=== PATIENT | female | born 1970 | race Caucasian/White ===

== ENCOUNTER 2016-05-10 04:09 | Emergency (ER) | payer MEDICAID ==
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
[2016-05-10 04:31] VITALS: TEMP 97.9; BMI 26.4
--- NOTE | 2016-05-10 05:11 | DIRPT ---
CLINICAL DATA: 46-year-old female with shortness of breath EXAM: CHEST 2 VIEW COMPARISON: Chest CT and radiograph dated 10/18/2014 FINDINGS: Two views of the chest do not demonstrate a focal consolidation. There is no pleural effusion or pneumothorax but a large hiatal hernia is again noted. The cardiac silhouette is within normal limits. The osseous structures appear unremarkable. IMPRESSION: No acute cardiopulmonary process. Large hiatal hernia. Electronically Signed By: Alan Shaw M.D. On: 05/10/2016 05:08
[2016-05-10] MEDS ORDERED: ALBUTEROL 6.7 GM MDI INH ONE (05:39)
[2016-05-10 05:57] VITALS: BP 100/66; PULSE 99
== END 2016-05-10 05:56 | disposition home or self-care (01) ==
LOC: ED 04:09
DX: J45.901 Unspecified asthma with (acute) exacerbation (principal)
CPT/HCPCS: 71020; 94640; 99284; J3490

== ENCOUNTER 2016-05-16 20:17 | Observation (INO) | payer MEDICAID ==
[2016-05-16 20:18] VITALS: BMI 26.4
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
[2016-05-16 21:05] LABS: ALL NEG? NO
[2016-05-16 21:13] LABS: MDMA* NEG (NEGATIVE); METHAMPHETAMINES *POSITIVE* (NEGATIVE); OXYCODONE NEG (NEGATIVE)
[2016-05-16 21:20] LABS: AUTOMATED BASOPHIL 0.8 % (0-2); AUTOMATED LYMPH 13.9 % (17-44); AUTOMATED MONOCYTE 1.5 % (3-10); AUTOMATED NEUTROPHIL 83.8 % (45-76); MPV 8.2 fL (7.4-10.4)
[2016-05-16 21:29] LABS: BLOOD UREA NITROGEN 15 MG/DL (7-17); CALC CORRECTED 8.7 MG/DL (8.4-10.2); CALCIUM 8.6 MG/DL (8.4-10.2); CALCULATED OSMOLALITY 287 MOs/Kg (270-290); CHLORIDE 109 mEq/L (98-107); GLUCOSE 130 MG/DL (70-99); SODIUM LEVEL 148 mEq/L (137-146); TOTAL PROTEIN 7.7 G/DL (6.3-8.2)
[2016-05-16 21:31] LABS: PARTIAL THROMB. TIME 21.8 SEC (22-35)
[2016-05-16 21:37] LABS: ETOH-MGDL 318 mg/dL
[2016-05-16] MEDS ORDERED: LORAZEPAM 1 MG TAB PO PRN (21:50)
[2016-05-16] MEDS ORDERED: DOCUSATE-SENNA CONCENTRATE TAB PO PRN (21:50)
[2016-05-16] MEDS ORDERED: ACETAMINOPHEN 325 MG/TAB TABLET PO PRN (21:50)
[2016-05-16] MEDS ORDERED: ONDANSETRON HCL 4 MG ODT TAB PO PRN (21:50)
[2016-05-16] MEDS ORDERED: MAGNESIUM HYDROXIDE 30 ML BOTTLE PO PRN (21:50)
[2016-05-16] MEDS ORDERED: Docusate Sodium 100 MG CAP PO PRN (21:50)
[2016-05-16] MEDS ORDERED: IBUPROFEN 400 MG TAB PO PRN (21:50)
[2016-05-16] MEDS ORDERED: ZOLPIDEM TARTRATE 5 MG TAB PO PRN (21:50)
[2016-05-16] MEDS ORDERED: DIAZEPAM 5 MG TAB PO ONE (21:56)
[2016-05-16] MEDS ORDERED: NICOTINE 21 MG PATCH TOP SCH (22:00)
[2016-05-17] MEDS ORDERED: DIAZEPAM 5 MG TAB PO ONE (00:26)
[2016-05-17] MEDS ORDERED: QUETIAPINE FUMARATE 25 MG TAB PO STA (03:26)
[2016-05-17] MEDS ORDERED: RISPERIDONE 1 MG TAB PO ONE (03:26)
[2016-05-17] MEDS ORDERED: LORAZEPAM 2 MG/ML VIAL IV PRN ×3 (03:28)
[2016-05-17] MEDS ORDERED: LORAZEPAM 1 MG TAB PO PRN ×3 (03:28)
[2016-05-17] MEDS ORDERED: DICYCLOMINE 20 MG TAB PO PRN (03:28)
[2016-05-17] MEDS ORDERED: Alcohol Withdrawal Scale Orders XX SCH (04:00)
[2016-05-17] MEDS ORDERED: CHLORDIAZEPOXIDE 25 MG CAP PO ONE (04:00)
[2016-05-17] MEDS ORDERED: CHLORDIAZEPOXIDE 25 MG CAP PO SCH (04:00)
[2016-05-17] MEDS: GABAPENTIN 300 MG CAP PO SCH ×2 (06:16→13:54)
[2016-05-17] MEDS: RANITIDINE 150 MG TAB PO SCH ×2 (09:00→13:55)
--- NOTE | 2016-05-17 11:11 | EDTUNOTE ---
Initial Evaluation Apperance: Stated Age Attitude: Cooperative Mood: Sad Affect: Congruent w/ mood, Depressed Insight: Impaired Judgement: Impaired Memory Description: Intact Depressive Symptoms: Reports: Crying episodes, Poor Energy, Sadness, Sleep changes Delusion Description: Reports: Not Present Hallucination Type: Reports: Visual Hallucinations Severity: Reports: Mild Hallucinations affecting more than one sensory system: No Recommend /or Refer: Involuntary Commitment - SOAP Note Patient Problems: Active Problems Alcohol intoxication (Acute) F10.129 Major depression (Acute) F32.9 PTSD (post-traumatic stress disorder) (Acute) F43.10 SOAP Note: 05/17/16 1100 Day 2 S: 46 y.o F presented to ED for alcohol intoxication, visual hallucinations. Pt denies c/o this morning. O: Vital Signs: Temp:99.5 F HR: 104 BP: 114/67 RR: 18 Pox: 95%. Resting comfortably CTA RRR A: Polysubstance abuse Major depression PTSD P: Continue meds as directed for further stabilization.
[2016-05-17] MEDS: CHLORDIAZEPOXIDE 25 MG CAP PO SCH ×2 (11:15→17:41)
--- NOTE | 2016-05-17 14:27 | TUDEPART ---
Disposition: Trans. to Other Hospital ([facility] [place]) Education/Counseling Given To: Patient Education/Counseling Given Regarding: Diagnosis, Treatment Decision to Transfer Time: 14:27 <Joya Loyola - Last Filed: 05/17/16 14:27> Time Seen By Provider: 18:36 Discussion of OBS Stay: No changes in clinical status or new information from previous documentation. Vital Signs: Temp:97.9 F HR: 116 BP: 126/78 RR: 20 Pox: 98%. Continue with current plan. General: PleasanT female] No acute distress. Neuro: Alert Oriented, calm and cooperative HEENT: Normocephalic atraumatic. Sclerae nonicteric. Extraocular movements intact. Oral mucosa pink and moist. Neck: Supple. Nontender. Good range of motion. No masses. Trachea is midline. No cervical adenopathy. Lungs: Clear to auscultation. No rhonchi or wheezing. Heart: Regular rate and rhythm. No murmur. Abdomen: Soft, nontender, nondistended. No hepatosplenomegaly. No abdominal wall defects or masses. No guarding or rebound. Extremities: no cyanosis clubbing or edema. No palpable deformities. Skin: Warm and dry, no rashes Yes I personally saw and evaluated the patient. <Rogerio Valle - Last Filed: 05/17/16 18:36> Condition: Stable Follow-up / Referrals: None,No Provider [Family Provider] - One Week - Physical Exam Constitutional: Alert (Awake), ETOH, Other (TEARFUL WHEN ASKED ABOUT SI AND FRIENDS ) Oriented to: Time, Person, Place Last recorded Vital Signs: Last Vital Signs Temp 98.1 F 05/17/16 11:10 Pulse 103 05/17/16 11:10 Resp 16 05/17/16 11:10 BP 97/62 L 05/17/16 11:10 Pulse Ox 95 05/17/16 11:10 Oxygen Pulse Oxygen Saturation 95 O2 Device Room Air Oxygen Flow Rate Fraction of Inspired Oxygen ( FIO2) - HEENT Head: Normal ( normocephalic) Eye Exam: Normal (PERRL, EOMI, Sclera white) Oropharynx: Normal (Pharynx:Moist without exudate,Gums-no swelling) Tympanic Membrane: Normal ENT EAC: Normal TMJ: Normal Nose: No Symptoms Reported (septum midline) - Respiratory/Cardiovascular Respiratory: Normal - CTA (BBS clear to auscultation without adventitious sounds ) Cardiovascular: Normal (RRR without murmur, gallop or rub) - GI Auscultation: Normal (NABS) Palpation: Normal (Soft,No rebound or guarding, non distended) Tenderness: Non tender Santana's Sign: Negative - Musculoskeletal Back: Normal (Non-Tender) Extremities: Normal (Normal tone, Pulses 2+ No cyanosis or edema, FROM) - Integumentary Skin: Normal, Warm, Dry Lymphatics: Normal (no adenopathy) - Neurologic Memory Impaired: Normal Motor Function: Normal (Normal tone, Pulses 2+ No cyanosis or edema, FROM) Cranial Nerve: Normal (CN II-X11 intact sensation, strength 5/5) Cerebellar: Normal Mood Description: Normal Perception: Normal <Joya Loyola - Last Filed: 05/17/16 14:27> - Physical Exam Last recorded Vital Signs: Last Vital Signs Temp 97.9 F 05/17/16 18:00 Pulse 116 05/17/16 18:00 Resp 20 05/17/16 18:00 BP 126/78 05/17/16 18:00 Pulse Ox 98 05/17/16 18:00 Oxygen Pulse Oxygen Saturation 98 O2 Device Room Air Oxygen Flow Rate Fraction of Inspired Oxygen ( FIO2) <Rogerio Valle - Last Filed: 05/17/16 18:36>
[2016-05-17] MEDS ORDERED: ALBUTEROL 6.7 GM MDI INH ONE (17:56)
[2016-05-17 18:47] VITALS: BP 139/86; PULSE 112; TEMP 98.3
[2016-05-17] MEDS ORDERED: ATORVASTATIN 40 MG TAB PO SCH (21:00)
[2016-05-18] MEDS ORDERED: CHLORDIAZEPOXIDE 25 MG CAP PO SCH (06:00)
[2016-05-18] MEDS ORDERED: VITAMINS,PRENATAL TABLET PO SCH (12:00)
[2016-05-18] MEDS ORDERED: THIAMINE 100 MG TAB PO SCH (12:00)
== END 2016-05-17 18:34 ==
LOC: ED 20:17 → EDINP 21:50 → TUOBSINP 05-17 07:42
PROVIDERS: ADMIT Physician Assistant Medical; ATTEND Physician Assistant Medical
DX: F43.10 Post-traumatic stress disorder, unspecified (principal); F33.1 Major depressive disorder, recurrent, moderate; F10.120 Alcohol abuse with intoxication, uncomplicated; I10 Essential (primary) hypertension; J45.909 Unspecified asthma, uncomplicated; M06.9 Rheumatoid arthritis, unspecified; F17.210 Nicotine dependence, cigarettes, uncomplicated; Z79.899 Other long term (current) drug therapy; Z89.612 Acquired absence of left leg above knee
CPT/HCPCS: 36415; 80053; 80307; 80329; 85025; 85610; 85730; 86592; 94640; 99284; G0378; J3490